=== PATIENT | female | born 1990 | race Caucasian/White ===

== ENCOUNTER 2020-08-27 06:15 | Emergency (ER) | payer BC ==
[~2020-08-27] VITALS: Ht 149.9 cm; Wt 57.7 kg
[2020-08-27] MEDS ORDERED: ondansetron/PF 4mg/2ml inj IV ONE (06:30)
[2020-08-27] MEDS ORDERED: normal saline 1000ML IV soln IVB ONE (06:30)
[2020-08-27] MEDS ORDERED: ketorolac trometh. 30mg/ml inj. IV ONE (06:35)
[2020-08-27] MEDS: morphine 4 MG/ML inj SYRINge IV PRN ×2 (06:35→07:06)
[2020-08-27 07:05] LABS: BASOPHILS # (AUTO) 0.1 X10'3 (0-0.2); BASOPHILS % (AUTO) 0.9 % (0-1); EOSINOPHILS # (AUTO) 0.1 X10'3 (0-0.9); EOSINOPHILS % (AUTO) 0.7 % (0-6); HEMATOCRIT 38.2 % (35.0-45.0); HEMOGLOBIN 12.8 g/dl (12.0-16.0); LYMPHOCYTES # (AUTO) 2.2 X10'3 (1.1-4.8); LYMPHOCYTES % (AUTO) 18.1 % (21-51); MEAN CORPUSCULAR HEMOGLOBIN 30.8 PG (27.0-31.0); MEAN CORPUSCULAR HGB CONC 33.4 g/dL (33.0-36.5); MEAN PLATELET VOLUME 7.9 FL (7.4-10.4); MONOCYTES # (AUTO) 0.7 X10'3 (0-0.9); NEUTROPHILS # (AUTO) 8.8 X10'3 (1.8-7.7); NEUTROPHILS % (AUTO) 74.3 % (42-75); PLATELET COUNT 304 X10'3 (140-440); RED BLOOD COUNT 4.16 X10'6 (4.20-5.60); RED CELL DISTRIBUTION WIDTH 12.9 % (11.5-14.5); WHITE BLOOD COUNT 11.9 X10'3 (4.5-11.0)
[2020-08-27 07:08] LABS: URINE HCG NEGATIVE (NEG)
[2020-08-27 07:19] LABS: ALANINE AMINOTRANSFERASE 24 U/L (12-78); ALBUMIN 4.1 G/DL (3.4-5.0); ALBUMIN/GLOBULIN RATIO 1.2 (1.1-1.5); ALKALINE PHOSPHATASE 54 IU/L (46-116); ANION GAP 11 (8-16); ASPARTATE AMINO TRANSFERASE 14 U/L (10-37); BILIRUBIN,TOTAL 0.3 MG/DL (0.1-1.0); BLOOD UREA NITROGEN 10 MG/DL (7-18); BUN/CREATININE RATIO 10.6 (6.6-38.0); CALCIUM 8.3 MG/DL (8.5-10.1); CHLORIDE 106 MMOL/L (99-107); CREATININE 0.94 MG/DL (0.40-0.90); GLUCOSE 141 MG/DL (70-104); LIPASE 123 U/L (73-393); POTASSIUM 3.3 MMOL/L (3.5-5.1); SODIUM 140 MMOL/L (135-145); TOTAL CARBON DIOXIDE 22.9 MMOL/L (24-32); TOTAL PROTEIN 7.4 G/DL (6.4-8.2); eGFR 69 ML/MIN
[2020-08-27 07:34] LABS: CLARITY,URINE CLEAR (Clear); COLOR,URINE YELLOW (Yellow); GLUCOSE, URINE NEGATIVE (Neg); KETONES,URINE TRACE mg/dl (Neg); LEUKOCYTE ESTERASE ,URINE NEGATIVE (Neg); NITRITES, URINE NEGATIVE (Neg); OCCULT BLOOD,URINE NEGATIVE (Neg); PROTEIN,URINE NEGATIVE (Neg); UROBILINOGEN,URINE 0.2 E.U/dL (0.2-1.0)
[2020-08-27 07:53] LABS: UA COLLECTION TYPE CLN CATCH MIDSTREAM
[2020-08-27] MEDS ORDERED: HYDROcodone/acetaminophen 10/325mg tab PO ONE (08:15)
[2020-08-27] MEDS ORDERED: ONDA4TAB6 PO (08:35)
[2020-08-27] MEDS ORDERED: HYDR-4353 PO (08:35)
[2020-08-27 08:57] VITALS: BP 130/90
== END 2020-08-27 09:07 | disposition home or self-care (01) ==
LOC: ER 06:15
DX: N20.2 Calculus of kidney with calculus of ureter (principal); R11.2 Nausea with vomiting, unspecified; Z60.2 Problems related to living alone
CPT/HCPCS: 36415; 74176; 80053; 81003; 81025; 83690; 85025; 96361; 96374; 96375; 96376; 99284; J1885; J2270; J2405; J7030

== ENCOUNTER 2020-08-31 16:42 | Emergency (ER) | payer BC ==
[~2020-08-31] VITALS: Ht 149.9 cm; Wt 57.7 kg
[~2020-08-31 16:42] MED LIST: HYDR-4353 PO; ONDA4TAB6 PO
[2020-08-31 19:44] LABS: BASOPHILS % (AUTO) 0.4 % (0-1); EOSINOPHILS % (AUTO) 0.1 % (0-6); HEMATOCRIT 39.4 % (35.0-45.0); HEMOGLOBIN 13.1 g/dl (12.0-16.0); LYMPHOCYTES # (AUTO) 1.7 X10'3 (1.1-4.8); LYMPHOCYTES % (AUTO) 12.6 % (21-51); MEAN CORPUSCULAR HEMOGLOBIN 30.8 PG (27.0-31.0); MEAN CORPUSCULAR HGB CONC 33.3 g/dL (33.0-36.5); MEAN CORPUSCULAR VOLUME 92.6 FL (78-98); MEAN PLATELET VOLUME 7.5 FL (7.4-10.4); MONOCYTES % (AUTO) 7.1 % (2-12); NEUTROPHILS # (AUTO) 10.8 X10'3 (1.8-7.7); NEUTROPHILS % (AUTO) 79.8 % (42-75); PLATELET COUNT 321 X10'3 (140-440); RED BLOOD COUNT 4.26 X10'6 (4.20-5.60); RED CELL DISTRIBUTION WIDTH 12.6 % (11.5-14.5); WHITE BLOOD COUNT 13.5 X10'3 (4.5-11.0)
[2020-08-31 20:01] LABS: ALANINE AMINOTRANSFERASE 24 U/L (12-78); ALBUMIN 4.3 G/DL (3.4-5.0); ALKALINE PHOSPHATASE 72 IU/L (46-116); ANION GAP 14 (8-16); ASPARTATE AMINO TRANSFERASE 13 U/L (10-37); BILIRUBIN,TOTAL 0.8 MG/DL (0.1-1.0); BLOOD UREA NITROGEN 8 MG/DL (7-18); BUN/CREATININE RATIO 6.3 (6.6-38.0); CALCIUM 9.4 MG/DL (8.5-10.1); CHLORIDE 98 MMOL/L (99-107); CREATININE 1.28 MG/DL (0.40-0.90); GLUCOSE 88 MG/DL (70-104); LIPASE 121 U/L (73-393); POTASSIUM 3.4 MMOL/L (3.5-5.1); SODIUM 134 MMOL/L (135-145); TOTAL CARBON DIOXIDE 21.6 MMOL/L (24-32); TOTAL PROTEIN 8.7 G/DL (6.4-8.2); eGFR 49 ML/MIN
[2020-08-31] MEDS ORDERED: ketorolac trometh. 30mg/ml inj. IV ONE (20:50)
[2020-08-31] MEDS ORDERED: morphine 4 MG/ML inj SYRINge IV ONE (20:55)
[2020-08-31] MEDS ORDERED: ondansetron/PF 4mg/2ml inj IV ONE (20:55)
[2020-08-31] MEDS ORDERED: normal saline 1000ML IV soln IVB ONE ×2 (20:55→22:00)
[2020-08-31 21:00] LABS: URINE HCG NEGATIVE (NEG)
[2020-08-31 21:02] LABS: CLARITY,URINE CLEAR (Clear); COLOR,URINE YELLOW (Yellow); GLUCOSE, URINE NEGATIVE (Neg); KETONES,URINE >=80 mg/dl (Neg); LEUKOCYTE ESTERASE ,URINE TRACE (Neg); NITRITES, URINE NEGATIVE (Neg); OCCULT BLOOD,URINE LARGE (Neg); PROTEIN,URINE 30 mg/dl (Neg)
[2020-08-31 21:03] LABS: UA COLLECTION TYPE CLN CATCH MIDSTREAM
[2020-08-31 21:07] LABS: BACTERIA,URINE 2+ /HPF (Neg); RBC,URINE 0-2 /HPF (0-2); WBC,URINE 0-4 /HPF (0-4)
[2020-08-31 21:08] LABS: SQUAMOUS EPITHELIAL CELL,UR MODERATE /LPF (FEW)
[2020-08-31] MEDS ORDERED: CefTRIAXone 2gm/D5W 50ml 50 ML IV ONE (21:45)
[2020-08-31] MEDS ORDERED: CEPH500C5 PO (22:31)
[2020-08-31] MEDS ORDERED: ONDA4TAB6 PO (22:32)
[2020-08-31] MEDS ORDERED: OXYC-481 PO (22:32)
[2020-08-31 22:47] VITALS: BP 120/79
== END 2020-08-31 22:48 | disposition home or self-care (01) ==
LOC: ER 16:42
DX: N20.0 Calculus of kidney (principal); Z60.2 Problems related to living alone; Z79.2 Long term (current) use of antibiotics; Z79.899 Other long term (current) drug therapy
CPT/HCPCS: 36415; 80053; 81001; 81025; 83690; 85025; 87088; 96361; 96365; 96375; 99284; J0696; J1885; J2270; J2405; J7030